=== PATIENT | male | born 1990 | race Caucasian/White ===

== ENCOUNTER 2016-10-04 08:54 | Day surgery (SDC) | payer OTHER ==
[~2016-10-04 08:54] MED LIST: Lactated Ringers 1,000 ML IV SCH; Lidocaine 1% 2 ML SDV ONE; Lidocaine 1%/Sod Bicarbonate in NS 8.4% 1 ML Syringe IV PRN; Midazolam 1 MG/ML 2 ML SDV ONE; Propofol 200 MG/20 ML SDV ONE; Sodium Chloride 0.9% 10 ML Syringe FLUSH PRN
--- NOTE | 2016-10-04 10:03 | PCM.PREANE ---
Preanesthetic Assessment - Anesthesia/Transfusion/Family Hx Anesthesia History: Prior Anesthesia Without Reaction Family History of Anesthesia Reaction: Yes Transfusion History: No Prior Transfusion(s) - Review of Systems General: No Symptoms Pulmonary: No Symptoms Cardiovascular: No Symptoms, Other (chest tightness r/t anxiety ) Neurological: No Symptoms Other: Reports: None - Physical Assessment NPO Status Date: 10/04/16 NPO Status Time: 07:00 O2 Sat by Pulse Oximetry: 93 Respiratory Rate: 16 Vital Signs: Last Vital Signs Temp 36.7 C 10/04/16 09:11 Pulse 75 10/04/16 09:11 Resp 16 10/04/16 09:11 BP 141/84 H 10/04/16 09:11 Pulse Ox 93 L 10/04/16 09:11 Height: 1.85 m Weight: 118.388 kg ASA Class: 2 Mental Status: Alert & Oriented x3 Airway Class: Mallampati = 2 Dentition: Reports: Normal Dentition Thyro-Mental Finger Breadths: 3 Mouth Opening Finger Breadths: 5 ROM/Head Extension: Full Lungs: Clear to auscultation, Normal respiratory effort Cardiovascular: Regular Rate, Regular Rhythm - Allergies Allergies/Adverse Reactions: Allergies Allergy/AdvReac Type Severity Reaction Status Date / Time No Known Allergies Allergy Verified 10/04/16 09:35 - Blood Blood Available: No - Anesthesia Plan Pre-Op Medication Ordered: None - Acknowledgements Anesthesia Type Planned: MAC Pt an Appropriate Candidate for the Planned Anesthesia: Yes Alternatives and Risks of Anesthesia Discussed w Pt/Guardian: Yes Pt/Guardian Understands and Agrees with Anesthesia Plan: Yes PreAnesthesia Questionnaire HEENT History: Reports: Impaired vision, Other (see below) Other HEENT History: wears glasses Cardiovascular History: Reports: Other (see below) Other Cardiovascular History: chest tightness Respiratory History: Reports: Asthma Gastrointestinal History: Reports: GERD, Other (see below) Other Gastrointestinal History: abdominal pain, diarrhea Genitourinary History: Reports: None [employer] History: Reports: None Musculoskeletal History: Reports: None Neurological History: Reports: None Psychiatric History: Reports: None Endocrine/Metabolic History: Reports: None Hematologic History: Reports: None Immunologic History: Reports: None Oncologic (Cancer) History: Reports: None Dermatologic History: Reports: None - Past Surgical History Head Surgeries/Procedures: Reports: None - SUBSTANCE USE Smoking Status *Q: Never Smoker Recreational Drug Use History: No - HOME MEDS Home Medications: Home Meds Omeprazole [Omeprazole] 20 mg PO DAILY 10/03/16 [History] - CURRENT (IN HOUSE) MEDS Current Meds: Current Medications Lactated Ringer's (Ringers, Lactated) 1,000 mls @ 125 mls/hr IV ASDIRECTED BARON Stop: 10/04/16 23:00 Last Admin: 10/04/16 09:19 Dose: 125 mls/hr Lidocaine/Sodium Bicarbonate (Buffered Lidocaine 1% In Ns 8.4%) 0.25 ml IV ONETIME PRN PRN Reason: Prior to IV Start Stop: 10/04/16 18:00 Last Admin: 10/04/16 09:18 Dose: 0.25 ml Sodium Chloride (Saline Flush) 10 ml FLUSH ASDIRECTED PRN PRN Reason: Keep Vein Open Stop: 10/04/16 18:00 Discontinued Medications Lidocaine HCl (Lidocaine 1%) Confirm Administered Dose 6 ml .ROUTE .STK-MED ONE Stop: 10/04/16 07:49 Midazolam HCl (Versed 1 Mg/Ml) Confirm Administered Dose 2 mg .ROUTE .STK-MED ONE Stop: 10/04/16 08:30 Propofol (Diprivan 20 Ml) Confirm Administered Dose 200 mg .ROUTE .STK-MED ONE Stop: 10/04/16 07:49 Preanesthetic Assessment - PHYSICAL ASSESSMENT O2 Sat by Pulse Oximetry: 93 RR: 16 Vital Signs: Last Vital Signs Temp 36.7 C 10/04/16 09:11 Pulse 75 10/04/16 09:11 Resp 16 10/04/16 09:11 BP 141/84 H 10/04/16 09:11 Pulse Ox 93 L 10/04/16 09:11 Height: 1.85 m Weight: 118.388 kg NPO Status Date: 10/04/16 NPO Status Time: 07:00 - ALLERGIES Allergies/Adverse Reactions: Allergies Allergy/AdvReac Type Severity Reaction Status Date / Time No Known Allergies Allergy Verified 10/04/16 09:35
--- NOTE | 2016-10-04 11:21 | PCM.OPNOTE ---
- General Post-Op/Procedure Note Date of Surgery/Procedure: 10/04/16 Operative Procedure(s): 1. EGD with antral and GE junction biopsied x2 using cold forceps technique. 2. Colonoscopy with random rectal biopsies x2 using cold forceps Findings: 1. normal EGD 2. poor colon prep but otherwise grossly normal exam Pre Op Diagnosis: 1. GERD chronic. 2. Change in bowel habits Post-Op Diagnosis: Normal EGD and Colonoscopy Anesthesia Technique: MAC, Moderate sedation Primary Surgeon: Cal Alvarado Pathology: 1. antral and GE junction biopsies 2. rectal biopsies EBL in mLs: 0 Complications: None Condition: Good Free Text/Narrative:: After an IV sedation and analgesia was obtained the patient was placed on his left side. Through a bite block a lubricated upper endoscope was inserted into the esophagus and advanced to the stomach. Air was given here. The scope was then passed through the pylorus and into the first and second parts of the duodenum, which were endoscopically normal with no mass lesions or inflammatory changes seen. The antrum and body of the stomach were unremarkable as well. I took 2 random biopsies of the antrum for histology. In the retroflexed view the fundus and cardiac, regions were normal. There was no hiatal hernia. The scope was then withdrawn past the GE junction which was normal. I took 2 random biopsies of the GE junction for histologic review. The body of the esophagus was grossly normal. Air was removed as I finished this part of the procedure, which he tolerated without issues. Photographs were taken for the patient and for the record. Perianal inspection and digital rectal examination were performed next were normal. A lubricated colonoscope was inserted into the rectum then advanced to the cecum, with air insufflation as necessary. The bowel preparation was poor per preventing inspection for fine mucosal detail. Nevertheless, there were no gross lesions seen in the cecum, right colon, transverse, and descending colons. The sigmoid and rectum in 2 views were also unremarkable. Nevertheless I took 2 random rectal biopsies with cold forceps.There were no inflammatory changes seen grossly throughout the exam. Photographs were taken for the patient and for the record. Air was removed, as a I finished the procedure which he tolerated well. There were no complications.
[2016-10-04] MEDS ORDERED: Propofol 200 MG/20 ML SDV ONE (11:24)
--- NOTE | 2016-10-04 11:26 | PCM48HPAN ---
Post Anesthesia Note - EVALUATION WITHIN 48HRS OF ANESTHETIC Vital Signs in Normal Range: Yes Patient Participated in Evaluation: Yes Respiratory Function Stable: Yes Airway Patent: Yes Cardiovascular Function Stable: Yes Hydration Status Stable: Yes Pain Control Satisfactory: Yes Nausea and Vomiting Control Satisfactory: Yes Mental Status Recovered: Yes
[2016-10-04 12:01] VITALS: BP 144/77
== END 2016-10-04 12:05 | disposition home or self-care (01) ==
LOC: JD.SDS 08:54
PROVIDERS: ATTEND Surgery
PROC: 0DB68ZX Excision of Stomach, Via Natural or Artificial Opening Endoscopic, Diagnostic (ICD-10-PCS; principal; 2016-10-04)
DX: K21.9 Gastro-esophageal reflux disease without esophagitis (principal); Z79.899 Other long term (current) drug therapy
CPT/HCPCS: 43239; 45380; 88305; J2250; J7120; J2704